=== PATIENT | female | born 1950 | race Caucasian/White ===

== ENCOUNTER 2017-04-26 20:56 | Emergency (ER) | payer OTHER ==
[2017-04-26 23:05] VITALS: BP 130/85
== END 2017-04-26 23:05 | disposition home or self-care (01) ==
LOC: ED 20:56
DX: M62.838 Other muscle spasm (principal); M54.2 Cervicalgia; E11.9 Type 2 diabetes mellitus without complications; E78.00 Pure hypercholesterolemia, unspecified; Z79.2 Long term (current) use of antibiotics; Z79.891 Long term (current) use of opiate analgesic; Z79.899 Other long term (current) drug therapy
CPT/HCPCS: J1885